=== PATIENT | male | born 1990 | race Caucasian/White ===

== ENCOUNTER 2018-08-06 18:35 | Emergency (ER) | payer BC ==
--- NOTE | 2018-08-06 18:43 | EDM.PDOC ---
ED HPI GENERAL MEDICAL PROBLEM - General Stated Complaint: COLD Time Seen by Provider: 08/06/18 18:42 Source of Information: Reports: Patient History Limitations: Reports: No Limitations - History of Present Illness INITIAL COMMENTS - FREE TEXT/NARRATIVE: HISTORY AND PHYSICAL: History of present illness: Patient is a 28-year-old male who presents to the clinic today with concerns of nonproductive cough. Patient states he has been sick since the beginning of July with nasal congestion, throat pain, and cough. He states now he has had several weeks of just the cough and has not gone away and it seems to be getting worse. He states that he feels as if he has fevers and chills off and on and takes Tylenol for this. He states he has not checked his temperature at home. He denies headache, muscle aches, sore throat, nasal congestion today. He denies any nausea, vomiting, or change in bowels. He denies all other GI or symptoms. Patient denies any health history. Review of systems: As per history of present illness and below otherwise all systems reviewed and negative. Past medical history: As per history of present illness and as reviewed below otherwise noncontributory. Surgical history: As per history of present illness and as reviewed below otherwise noncontributory. Social history: See social history for further information Family history: As per history of present illness and as reviewed below otherwise noncontributory. Physical exam: General: Patient is alert, oriented, and in no acute distress. Patient is sitting comfortably on exam table. HEENT: Atraumatic, normocephalic, pupils equal and reactive bilaterally, negative for conjunctival pallor or scleral icterus, mucous membranes moist, TMs normal bilaterally, throat is moderately erythematous with exudate., neck supple, nontender, trachea midline. No drooling or trismus noted. No meningeal signs. No hot potato voice noted. Lungs: Clear to auscultation, breath sounds equal bilaterally, chest nontender, however, coughing was elicited throughout exam. Heart: S1S2, regular rate and rhythm without overt murmur Abdomen: Soft, nondistended, nontender. Negative for masses or hepatosplenomegaly. Negative for costovertebral tenderness. Pelvis: Stable nontender. Genitourinary: Deferred. Rectal: Deferred. Skin: Intact, warm, dry. No lesions or rashes noted. Extremities: Atraumatic, negative for cords or calf pain. Neurovascular unremarkable. Neuro: Awake, alert, oriented. Cranial nerves II through XII unremarkable. Cerebellum unremarkable. Motor and sensory unremarkable throughout. Exam nonfocal. Notes: Patient has had ongoing cough since the first week of July. Chest XR shows no acute cardio/pulmonary process. However, since patients duration of symptoms have been ongoing for this long, will treat patient with Azithromycin for cough. Strep result was negative. Diagnostics: Rapid strep, chest x-ray Therapeutics: None Prescription: Azithromycin Phenergan with codeine Impression: Upper respiratory infection Plan: 1. Take medications as prescribed. Caution when using Phenergan with codeine as this may cause drowsiness. Careful when driving or activities out of the house. 2. You can use over the counter cough drops, cough syrup, and humidifier as needed for symptomatic relief. 3. You can alternate Tylenol and Ibuprofen as needed for discomfort. 4. Follow up with your primary care provider. 4. Return to the ED as needed and as discussed. Definitive disposition and diagnosis as appropriate pending reevaluation and review of above. Generalized Pain Score (Numeric/FACES): 5 - Related Data Allergies Allergy/AdvReac Type Severity Reaction Status Date / Time No Known Allergies Allergy Verified 08/06/18 18:51 Home Meds: Home Meds Omeprazole [priLOSEC OTC] 20 mg PO DAILY 11/11/13 [History] Past Medical History - Past Health History Medical/Surgical History: Denies Medical/Surgical History Musculoskeletal History: Reports: Other (See Below) Other Musculoskeletal History: right arm left clavical right thumb sparained ankle left broken ribs left side Neurological History: Reports: None Psychiatric History: Reports: None Endocrine/Metabolic History: Reports: None Hematologic History: Reports: None Immunologic History: Reports: None Oncologic (Cancer) History: Reports: None Dermatologic History: Reports: None - Infectious Disease History Infectious Disease History: Reports: None - Past Surgical History Head Surgeries/Procedures: Reports: None ED ROS GENERAL - Review of Systems Review Of Systems: ROS reveals no pertinent complaints other than HPI. ED EXAM, GENERAL - Physical Exam Exam: See Below (See dictation) Course - Vital Signs Last Recorded V/S: Last Vital Signs Temp 97.6 F 08/06/18 18:48 Pulse 95 08/06/18 18:48 Resp 18 08/06/18 18:48 BP 125/80 08/06/18 18:48 Pulse Ox 97 08/06/18 18:48 - Orders/Labs/Meds Orders: Active Orders 24 hr Category Date Time Status CULTURE STREP A CONFIRMATION [] Stat Lab 08/06/18 19:22 Results STREP SCRN A RAPID W CULT CONF [RM] Stat Lab 08/06/18 19:22 Results Departure - Departure Time of Disposition: 19:28 Disposition: Home, Self-Care 01 Condition: Good Clinical Impression: Upper respiratory infection Qualifiers: URI type: unspecified URI Qualified Code(s): J06.9 - Acute upper respiratory infection, unspecified - Discharge Information Instructions: Cough, Adult, [id number] Referrals: PCP,Unknown [Primary Care Provider] - Additional Instructions: The following information is given to patients seen in the emergency department who are being discharged to home. This information is to outline your options for follow-up care. We provide all patients seen in our emergency department with a follow-up referral. The need for follow-up, as well as the timing and circumstances, are variable depending upon the specifics of your emergency department visit. If you don't have a primary care physician on staff, we will provide you with a referral. We always advise you to contact your personal physician following an emergency department visit to inform them of the circumstance of the visit and for follow-up with them and/or the need for any referrals to a consulting specialist. The emergency department will also refer you to a specialist when appropriate. This referral assures that you have the opportunity for follow-up care with a specialist. All of these measure are taken in an effort to provide you with optimal care, which includes your follow-up. Under all circumstances we always encourage you to contact your private physician who remains a resource for coordinating your care. When calling for follow-up care, please make the office aware that this follow-up is from your recent emergency room visit. If for any reason you are refused follow-up, please contact the [facility] Emergency Department at and asked to speak to the emergency department charge nurse. [facility] [address] [place] [id number] [facility] [address] [place] [address] 1. Take medications as prescribed. Caution when using Phenergan with codeine as this may cause drowsiness. Careful when driving or activities out of the house. 2. You can use over the counter cough drops, cough syrup, and humidifier as needed for symptomatic relief. 3. You can alternate Tylenol and Ibuprofen as needed for discomfort. 4. Follow up with your primary care provider. 4. Return to the ED as needed and as discussed. - My Orders Last 24 Hours: My Active Orders 08/06/18 19:22 CULTURE STREP A CONFIRMATION [RM] Stat STREP SCRN A RAPID W CULT CONF [RM] Stat - Assessment/Plan Last 24 Hours: My Active Orders 08/06/18 19:22 CULTURE STREP A CONFIRMATION [RM] Stat STREP SCRN A RAPID W CULT CONF [RM] Stat
[2018-08-06 18:51] VITALS: BP 125/80
--- NOTE | 2018-08-06 19:48 | CR ---
Indication: Pain, shortness of breath. Technique: Chest 2 views Comparison: None Findings: Cardiovascular and mediastinum: Heart size and vasculature are normal in caliber and appearance. Lungs and pleural spaces: Lungs are clear. No sign of infiltrate or mass. No sign of pleural effusion. No pneumothorax. Bones and soft tissues: No significant findings. Impression: No acute or significant findings. Dictated by Ramon Hamilton MD @ Aug 06 2018 7:46PM Signed by Dr. Ramon Hamilton @ Aug 06 2018 7:47PM
== END 2018-08-06 20:07 | disposition home or self-care (01) ==
LOC: MW.ED 18:35
DX: J06.9 Acute upper respiratory infection, unspecified (principal)
CPT/HCPCS: 71046; 71046-26; 87081; 87804; 87880-QW; 99283